=== PATIENT | female | born 1995 | race Caucasian/White ===

== ENCOUNTER 2017-12-17 00:23 | Emergency (ER) | payer MEDICAID, OTHER ==
[~2017-12-17] VITALS: Ht 160 cm; Wt 62.1 kg
[2017-12-17 00:37] VITALS: BP 120/67
[2017-12-17] MEDS ORDERED: IBUPROFEN 600 MG TABLET PO ONE ×2 (00:52→01:00)
== END 2017-12-17 01:36 | disposition home or self-care (01) ==
LOC: ER 00:23
DX: S16.1XXA Strain of muscle, fascia and tendon at neck level, initial encounter (principal); F17.200 Nicotine dependence, unspecified, uncomplicated; V49.19XA Passenger injured in collision with other motor vehicles in nontraffic accident, initial encounter; Y93.89 Activity, other specified; Y92.413 State road as the place of occurrence of the external cause; Y99.8 Other external cause status
CPT/HCPCS: 99282; A4606; Z7610